=== PATIENT | female | born 1945 | race Hispanic/Latino ===

== ENCOUNTER 2017-06-01 22:49 | Emergency (ER) | payer OTHER, MEDICARE ==
[~2017-06-01] VITALS: Ht 160 cm; Wt 73.4 kg
[~2017-06-01 22:49] MED LIST: ADVIL,NUPRIN,M200 MG PO; ALBUTEROL SULF8.5 GM IH; ASPIR 8181 M1 PO; ASPIRIN325 MG PO; Aspirin PO; BACTRIM,SEPT1 TABLET PO; BUSPAR7.5 MG PO; CELEXA20 MG PO; Cipro PO; ESTRACE1 MG PO; FLONASE16 G1 BOTH NARES; KEFLEX500 MG PO; LEVAQUIN500 MG PO; LIPITOR40 MG PO; MACROBID100 MG PO; MECLIZINE HCL25 MG PO; MOTRIN800 MG PO; NAPROSYN500 MG PO; NASONEX17 GM BOTH NARES; NITROFURANTOIN50 MG PO; PERCOCET 5/31 TABLET PO; PREDNISONE20 MG PO; PRILOSEC OTC20 M1 PO; PRILOSEC20 MG PO; PRINIVIL5 MG PO; PROBIOTIC1 EAC1 PO; PYRIDIUM100 MG PO; PYRIDIUM200 MG PO; TESSALON200 MG PO; TRAMADOL HCL50 MG PO; TYLENOL WITH C1 EACH PO; VENTOLIN HFA18 GM IH; ZESTRIL,PRINIVIL5 MG PO; ZITHROMAX500 MG PO; ZOCOR20 MG PO; ZOFRAN ODT4 MG PO; ZOFRAN4 MG PO; Zantac PO; Zestril,Prinivil PO; [UNRECOGNIZED DRUG - CODE] PO; hormone
[2017-06-02 01:00] LABS: HEMATOCRIT 43.9 % (36.0-46.0); HEMOGLOBIN 14.9 G/DL (11.9-15.5); MCH 29.9 PG (29.0-34.0); MCHC 33.9 G/DL (30.0-36.0); MCV 88.2 FL (83-99); PLATELET COUNT 241 K/uL (156-360); RBC DIS.WIDTH-CV 12.2 % (11.8-14.6); RBC DIS.WIDTH-SD 39.5 % (39-53); RED BLOOD COUNT 4.98 M/uL (3.80-5.20); WHITE BLOOD COUNT 8.5 K/uL (4.1-10.2)
[2017-06-02 01:08] LABS: CHLORIDE 105 mEq/L (99-109); POTASSIUM 3.8 mEq/L (3.7-5.4); SODIUM 137 mEq/L (136-147)
[2017-06-02 01:10] LABS: GLUCOSE 131 mg/dL (70-99)
[2017-06-02 01:14] LABS: CREATININE 0.8 mg/dL (0.6-1.3); GFR ESTIMATE (CALCULATED) > 59 mL/min/
[2017-06-02 01:15] LABS: UREA NITROGEN (BUN) 12 mg/dL (9-23)
[2017-06-02 01:20] LABS: APPEARANCE CLEAR ((CLEAR)); BILIRUBIN NEGATIVE; BLOOD NEGATIVE; COLOR STRAW ((YELLOW)); GLUCOSE (STRIP) NEGATIVE; KETONES NEGATIVE; LEUKOCYTES NEGATIVE; NITRITE NEGATIVE; PROTEIN (STRIP) NEGATIVE; SPECIFIC GRAVITY 1.004 (1.000-1.030); UCUL ADDED? NO; UROBILINOGEN 0.2 MG/DL (0.2-1.0)
[2017-06-02 01:40] LABS: ALBUMIN 4.2 g/dL (3.2-4.8)
[2017-06-02 01:43] LABS: TOTAL PROTEIN 7.2 g/dL (6.4-8.3)
[2017-06-02 01:44] LABS: TOTAL BILIRUBIN 0.5 mg/dL (0.0-1.0)
[2017-06-02 01:45] LABS: ALKALINE PHOSPHATASE 101 IU/L (3-129)
[2017-06-02 01:48] LABS: AST (GOT) 23 IU/L (2-34); DIRECT BILIRUBIN 0.2 mg/dL (0.0-0.3)
[2017-06-02 01:49] LABS: ALT (GPT) 35 IU/L (3-49); LIPASE 9 U/L (1.0-51.0)
[2017-06-02] MEDS ORDERED: PYRIDIUM100 MG PO (02:31)
[2017-06-02] MEDS ORDERED: PREDNISONE10 MG PO (02:31)
[2017-06-02 02:50] VITALS: BP 132/95
== END 2017-06-02 02:52 | disposition home or self-care (01) ==
LOC: EME 22:49
PROVIDERS: Emergency Medicine
DX: L53.9 Erythematous condition, unspecified (principal); R22.0 Localized swelling, mass and lump, head; T36.8X5A Adverse effect of other systemic antibiotics, initial encounter; N39.0 Urinary tract infection, site not specified; I10 Essential (primary) hypertension; E78.5 Hyperlipidemia, unspecified; F32.9 Major depressive disorder, single episode, unspecified; Z87.442 Personal history of urinary calculi; Z86.73 Personal history of transient ischemic attack (TIA), and cerebral infarction without residual deficits; Z88.5 Allergy status to narcotic agent
CPT/HCPCS: 80048; 80076; 81003; 83690; 85027; 99281; 99284; J7512

== ENCOUNTER 2017-06-19 20:47 | Emergency (ER) | payer OTHER, MEDICARE ==
[~2017-06-19] VITALS: Ht 160 cm; Wt 73.6 kg
[~2017-06-19 20:47] MED LIST changes: +PREDNISONE10 MG PO
[2017-06-19 21:26] LABS: HEMATOCRIT 42.5 % (36.0-46.0); HEMOGLOBIN 14.3 G/DL (11.9-15.5); MCHC 33.6 G/DL (30.0-36.0); MCV 89.1 FL (83-99); PLATELET COUNT 219 K/uL (156-360); RBC DIS.WIDTH-CV 12.1 % (11.8-14.6); RBC DIS.WIDTH-SD 39.5 % (39-53); RED BLOOD COUNT 4.77 M/uL (3.80-5.20); WHITE BLOOD COUNT 7.2 K/uL (4.1-10.2)
[2017-06-19 21:39] LABS: ALBUMIN 3.9 g/dL (3.2-4.8); CHLORIDE 107 mEq/L (99-109)
[2017-06-19 21:40] LABS: POTASSIUM 4.2 mEq/L (3.7-5.4); SODIUM 140 mEq/L (136-147)
[2017-06-19 21:42] LABS: GLUCOSE 112 mg/dL (70-99)
[2017-06-19 21:44] LABS: TOTAL BILIRUBIN 0.5 mg/dL (0.0-1.0)
[2017-06-19 21:45] LABS: ALKALINE PHOSPHATASE 97 IU/L (3-129); CREATININE 0.7 mg/dL (0.6-1.3); GFR ESTIMATE (CALCULATED) > 59 mL/min/
[2017-06-19 21:47] LABS: AST (GOT) 23 IU/L (2-34); UREA NITROGEN (BUN) 10 mg/dL (9-23)
[2017-06-19 21:48] LABS: ALT (GPT) 28 IU/L (3-49)
[2017-06-19 21:56] LABS: APPEARANCE CLEAR ((CLEAR)); BILIRUBIN NEGATIVE; BLOOD SMALL; COLOR YELLOW ((YELLOW)); GLUCOSE (STRIP) NEGATIVE; KETONES NEGATIVE; LEUKOCYTES NEGATIVE; NITRITE NEGATIVE; PROTEIN (STRIP) NEGATIVE; SPECIFIC GRAVITY 1.016 (1.000-1.030); UROBILINOGEN 0.2 MG/DL (0.2-1.0)
[2017-06-19 22:01] LABS: BACTERIA NONE SEEN /HPF; EPITHELIAL CELLS RARE /HPF; MUCUS TRACE /LPF; RED BLOOD CELLS 0-5 /HPF (0-5); UCUL ADDED? NO; WHITE BLOOD CELLS 0-5 /HPF (0-5)
[2017-06-20 05:10] VITALS: BP 132/89
== END 2017-06-20 05:10 | disposition home or self-care (01) ==
LOC: EME 20:47
DX: R10.9 Unspecified abdominal pain (principal); R31.9 Hematuria, unspecified; Z87.442 Personal history of urinary calculi; K76.0 Fatty (change of) liver, not elsewhere classified; M47.896 Other spondylosis, lumbar region; Z90.49 Acquired absence of other specified parts of digestive tract; Z90.710 Acquired absence of both cervix and uterus; Z79.890 Hormone replacement therapy
CPT/HCPCS: 74176; 80053; 81003; 85027; 99281; 99284

== ENCOUNTER 2017-08-17 22:05 | Inpatient (IN) | payer OTHER, MEDICARE ==
[~2017-08-17] VITALS: Ht 160 cm; Wt 83.3 kg
[~2017-08-17 22:05] MED LIST changes: +IRON325 M1 PO
[2017-08-18 12:16] VITALS: BP 128/81
[2017-08-18 20:10] VITALS: BP 134/73
[2017-08-18 23:22] VITALS: BP 134/73
[2017-08-19 04:14] VITALS: BP 144/78
[2017-08-19 05:51] LABS: HEMATOCRIT 37.4 % (36.0-46.0); MCV 87.6 FL (83-99)
[2017-08-19 06:06] LABS: HEMOGLOBIN 12.5 G/DL (11.9-15.5)
[2017-08-19 06:25] LABS: CHLORIDE 104 MEQ/L (99-109); CREATININE 0.7 MG/DL (0.6-1.3); GFR ESTIMATE (CALCULATED) > 59 mL/min/; GLUCOSE 179 mg/dL (70-99); POTASSIUM 4.3 MEQ/L (3.7-5.4); SODIUM 138 MEQ/L (136-147); UREA NITROGEN (BUN) 11 mg/dL (9-23)
[2017-08-19 07:51] VITALS: BP 129/67
[2017-08-19 12:16] VITALS: BP 128/72
[2017-08-19 17:11] VITALS: BP 122/79
[2017-08-19 20:00] VITALS: BP 118/58
[2017-08-20] VITALS: BP 128/70
[2017-08-20 05:28] LABS: HEMATOCRIT 34.7 % (36.0-46.0); HEMOGLOBIN 11.6 G/DL (11.9-15.5); MCV 88.3 FL (83-99)
[2017-08-20] MEDS ORDERED: BENADRYL25 MG PO (09:55)
[2017-08-20] MEDS ORDERED: TYLENOL REGULA325 MG PO (09:56)
[2017-08-20] MEDS ORDERED: SENNA PLUS TAB1 EACH PO (09:56)
[2017-08-20] MEDS ORDERED: Salonpas 4% Patch TD (09:57)
[2017-08-20] MEDS ORDERED: HYDROCODON-ACE1 EAC7 PO (09:57)
[2017-08-20] MEDS ORDERED: ELIQUIS2.5 MG PO (09:57)
[2017-08-20 15:58] VITALS: BP 139/75
[2017-08-20 23:24] VITALS: BP 153/80
[2017-08-21 08:13] VITALS: BP 137/77
== END 2017-08-21 11:39 | disposition home or self-care (01) | DRG 470 ==
LOC: ENRESERV 22:05 → 2SOUTH 08-18 11:18 → ENRESERV 08-18 16:45 → 3EAST 08-18 20:03
PROVIDERS: Orthopaedic Surgery
PROC: 0SRD0J9 Replacement of Left Knee Joint with Synthetic Substitute, Cemented, Open Approach (ICD-10-PCS; principal; 2017-08-18)
PROC: 3E0T3BZ Introduction of Anesthetic Agent into Peripheral Nerves and Plexi, Percutaneous Approach (ICD-10-PCS; 2017-08-18)
DX: M17.12 Unilateral primary osteoarthritis, left knee (principal); R73.03 Prediabetes; Z88.2 Allergy status to sulfonamides; Z88.5 Allergy status to narcotic agent
CPT/HCPCS: 80048; 85014; 85018; 94799; C1713; J0131; J0690; J2250; J2405; J2765; J2795; J7050; J7120

== ENCOUNTER 2017-12-23 16:17 | Emergency (ER) | payer OTHER, MEDICARE ==
[~2017-12-23] VITALS: Ht 160 cm; Wt 73.6 kg
[~2017-12-23 16:17] MED LIST changes: +BENADRYL25 MG PO; +ELIQUIS2.5 MG PO; +HYDROCODON-ACE1 EAC7 PO; +SENNA PLUS TAB1 EACH PO; +Salonpas 4% Patch TD; +TYLENOL REGULA325 MG PO
[2017-12-23 16:23] VITALS: BP 155/101
[2017-12-23 16:59] LABS: BASOPHIL (%) 0.7 % (0-1); BASOPHIL COUNT 0.1 K/uL (0-0.1); EOSINOPHIL (%) 3.3 % (0-5); EOSINOPHIL COUNT 0.3 K/uL (0-0.3); HEMATOCRIT 43.1 % (36.0-46.0); HEMOGLOBIN 14.6 G/DL (11.9-15.5); IMMATURE GRANULOCYTE (%) 0.3 % (0.0-0.7); LYMPHOCYTE COUNT 2.6 K/uL (1.0-2.8); MCH 29.5 PG (29.0-34.0); MCHC 33.9 G/DL (30.0-36.0); MCV 87.1 FL (83-99); MONOCYTE (%) 6.2 % (3-12); MONOCYTE COUNT 0.5 K/uL (0-0.8); NEUTROPHIL (%) 55.5 % (45-76); NEUTROPHIL COUNT 4.2 K/uL (1.8-6.4); PLATELET COUNT 272 K/uL (156-360); RBC DIS.WIDTH-CV 12.7 % (11.8-14.6); RED BLOOD COUNT 4.95 M/uL (3.80-5.20); WHITE BLOOD COUNT 7.6 K/uL (4.1-10.2)
[2017-12-23 17:14] LABS: ALBUMIN 4.2 g/dL (3.2-4.8); CHLORIDE 105 mEq/L (99-109); POTASSIUM 4.2 mEq/L (3.7-5.4); SODIUM 142 mEq/L (136-147)
[2017-12-23 17:16] LABS: GLUCOSE 143 mg/dL (70-99); TOTAL PROTEIN 7.9 g/dL (6.4-8.3)
[2017-12-23 17:18] LABS: TOTAL BILIRUBIN 0.4 mg/dL (0.0-1.0)
[2017-12-23 17:20] LABS: ALKALINE PHOSPHATASE 120 IU/L (3-129); CREATININE 0.8 mg/dL (0.6-1.3); GFR ESTIMATE (CALCULATED) > 59 mL/min/
[2017-12-23 17:21] LABS: AST (GOT) 30 IU/L (2-34); UREA NITROGEN (BUN) 13 mg/dL (9-23)
[2017-12-23 17:22] LABS: DIRECT BILIRUBIN 0.1 mg/dL (0.0-0.3)
[2017-12-23 17:22] LABS: APPEARANCE CLEAR ((CLEAR)); BILIRUBIN NEGATIVE; BLOOD NEGATIVE; COLOR COLORLESS ((YELLOW)); GLUCOSE (STRIP) NEGATIVE; KETONES NEGATIVE; LEUKOCYTES NEGATIVE; NITRITE NEGATIVE; PROTEIN (STRIP) NEGATIVE; SPECIFIC GRAVITY 1.003 (1.000-1.030); UROBILINOGEN 0.2 MG/DL (0.2-1.0)
[2017-12-23 17:23] LABS: ALT (GPT) 32 IU/L (3-49)
[2017-12-23] MEDS ORDERED: ULTRAM50 MG PO (17:41)
[2017-12-23] MEDS ORDERED: ZOFRAN ODT4 MG PO (17:41)
== END 2017-12-23 17:54 | disposition home or self-care (01) ==
LOC: EME 16:17
PROVIDERS: Physician Assistant
DX: R10.32 Left lower quadrant pain (principal); M54.5 Low back pain; E78.5 Hyperlipidemia, unspecified; Z87.442 Personal history of urinary calculi; Z87.440 Personal history of urinary (tract) infections; Z86.73 Personal history of transient ischemic attack (TIA), and cerebral infarction without residual deficits; Z90.49 Acquired absence of other specified parts of digestive tract; Z96.652 Presence of left artificial knee joint; Z88.5 Allergy status to narcotic agent
CPT/HCPCS: 74176; 80048; 80076; 81003; 85025 91; 99281; 99284; J1885